=== PATIENT | male | born 1955 | race Caucasian/White ===

== ENCOUNTER → 2016-10-18 | Outpatient (CLI) | payer BC ==
[2016-10-18 09:34] LABS: ALKALINE PHOSPHATASE 75 U/L (45-117); ALT/SGPT 29 U/L (12-78); ANION GAP 8 MEQ/L (8-16); AST/SGOT 16 U/L (15-37); BILIRUBIN,TOTAL 0.5 MG/DL (0.2-1.0); BLOOD UREA NITROGEN 25 MG/DL (7-18); CALCIUM LEVEL 8.9 MG/DL (8.8-10.2); CARBON DIOXIDE LEVEL 28 MEQ/L (21-32); CHLORIDE LEVEL 109 MEQ/L (98-107); CHOLESTEROL LEVEL 245 MG/DL (<200); CREATININE FOR GFR 0.93 MG/DL (0.70-1.30); GLOMERULAR FILTRATION RATE > 60.0 (>49); GLUCOSE, FASTING 95 MG/DL (80-110); POTASSIUM SERUM 4.1 MEQ/L (3.5-5.1); SODIUM LEVEL 145 MEQ/L (136-145); TOTAL PROTEIN 6.5 GM/DL (6.4-8.2); TRIGLYCERIDES LEVEL 352 MG/DL (<150)
== END ==
LOC: M WUC 08:11
PROVIDERS: ATTEND Emergency Medicine
DX: E78.2 Mixed hyperlipidemia (principal); I10 Essential (primary) hypertension

== ENCOUNTER 2023-12-27 14:31 | Inpatient (IN) | payer BC ==
[~2023-12-27] VITALS: Ht 172.7 cm; Wt 121.7 kg
[2023-12-27] MEDS ORDERED: OMEP40CA5 PO (14:45)
[2023-12-27] MEDS ORDERED: NAPR-849 PO (14:45)
[2023-12-27] MEDS ORDERED: CETI10CH PO (14:45)
[2023-12-27 15:31] LABS: BASO # 0.1 10^3/uL (0.0-0.2); BASO % 0.7 % (0.0-1.0); EOS # 0.1 10^3/uL (0.0-0.5); EOS % 1.6 % (0.0-3.0); HEMATOCRIT 36.9 % (42.0-52.0); HEMOGLOBIN 11.9 g/dl (13.5-17.5); LYMPH # 0.7 10^3/uL (1.5-5.0); LYMPH % 8.1 % (24.0-44.0); MEAN CORPUSCULAR HEMOGLOBIN 29.1 pg (27.0-33.0); MEAN CORPUSCULAR HGB CONC 32.2 g/dl (32.0-36.5); MEAN CORPUSCULAR VOLUME 90.2 fl (80.0-96.0); MONO % 10.9 % (2.0-8.0); NEUTROPHILS % 78.3 % (36.0-66.0); PLATELET COUNT, AUTOMATED 220 10^3/uL (150-450); RED BLOOD COUNT 4.09 10^6/uL (4.30-6.10)
[2023-12-27 15:56] LABS: CK-MB VALUE MASS 1.8 NG/ML (<3.6)
[2023-12-27 15:58] LABS: ALBUMIN 3.5 G/DL (3.2-5.2); ALKALINE PHOSPHATASE 82 U/L (46-116); ALT/SGPT 19 U/L (7.0-40); AST/SGOT 18 U/L (<34); BILIRUBIN,DIRECT 0.3 MG/DL (<0.4); BILIRUBIN,TOTAL 0.7 MG/DL (0.3-1.2); BLOOD UREA NITROGEN 20 MG/DL (9-23); CALCIUM LEVEL 9.2 MG/DL (8.3-10.6); CARBON DIOXIDE LEVEL 28 MMOL/L (20-31); CHLORIDE LEVEL 110 MMOL/L (98-107); CPK CREATINE PHOSPHOKINASE 45 U/L (46-171); CREATININE FOR GFR 1.03 MG/DL (0.70-1.30); GLOMERULAR FILTRATION RATE > 60.0 (>49); GLUCOSE, FASTING 96 MG/DL (74-106); POTASSIUM SERUM 3.8 MMOL/L (3.5-5.1); SODIUM LEVEL 140 MMOL/L (136-145); TOTAL PROTEIN 5.6 G/DL (5.7-8.2)
[2023-12-27 15:59] LABS: THYROID STIMULATING HORMONE 0.978 uIU/ML (0.55-4.78)
[2023-12-27 16:00] LABS: FREE T4 1.36 NG/DL (0.89-1.76)
[2023-12-27] MEDS: FUROSEMIDE 100MG/10ML VIAL IV ONE (17:06)
[2023-12-27 17:43] LABS: CK-MB VALUE MASS 1.9 NG/ML (<3.6)
[2023-12-27 17:44] LABS: MB/CK RELATIVE INDEX 4.41 (< OR =4)
[2023-12-27 18:43] LABS: RSV AMPLIFICATION NEGATIVE (NEGATIVE)
[2023-12-27] MEDS ORDERED: CETI10TA4 PO (19:21)
[2023-12-27] MEDS ORDERED: OMEP-173 PO (19:21)
[2023-12-27] MEDS ORDERED: NAPR220C23 PO (19:21)
[2023-12-27] MEDS ORDERED: HOME MED LIST COMPLETE! XX SCH (19:25)
[2023-12-27] MEDS: hydrALAZINE 20MG/ML 1ML VIAL IV STA (19:29)
[2023-12-27] MEDS ORDERED: MOM 30ML SUSPENSION UDC PO PRN (23:10)
[2023-12-27] MEDS ORDERED: ACETAMINOPHEN TAB 650MG DOSE (2X325MG) PO PRN (23:10)
[2023-12-28] VITALS (8 sets, daily range): BP systolic 140–189; BP diastolic 70–102; TEMP 97.3–98.8; O2SAT 91–96
[2023-12-28] MEDS: CETIRIZINE (ZyrTEC) 10 MG TAB PO SCH (00:17)
[2023-12-28 04:11] LABS: APPEARANCE, URINE CLEAR (CLEAR); BACTERIA, URINE AUTO NEGATIVE (NEGATIVE); BILIRUBIN, URINE AUTO NEGATIVE (NEGATIVE); BLOOD, URINE BLOOD NEGATIVE (NEGATIVE); COLOR, URINE YELLOW (YELLOW); GLUCOSE, URINE (UA) AUTO NEGATIVE (NEGATIVE); KETONE, URINE AUTO NEGATIVE (NEGATIVE); LEUKOCYTE ESTERASE, URINE AUTO NEGATIVE (NEGATIVE); MUCUS, URINE SMALL (NEGATIVE); NITRITE, URINE AUTO NEGATIVE (NEGATIVE); PROTEIN, URINE AUTO 2+ mg/dL (NEGATIVE); RBC, URINE AUTO 2 /HPF (0-3); SPECIFIC GRAVITY URINE AUTO 1.014 (1.002-1.035); SQUAMOUS EPITHELIAL CELL UR AU 0 /HPF (0-6); WBC, URINE AUTO 1 /HPF (0-3)
[2023-12-28] MEDS: LABETALOL 100MG/20ML VIAL IV STA (04:20)
[2023-12-28 05:39] LABS: HEMOGLOBIN 11.5 g/dl (13.5-17.5); MEAN CORPUSCULAR HEMOGLOBIN 28.7 pg (27.0-33.0); MEAN CORPUSCULAR HGB CONC 31.9 g/dl (32.0-36.5); MEAN CORPUSCULAR VOLUME 89.8 fl (80.0-96.0); PLATELET COUNT, AUTOMATED 208 10^3/uL (150-450); RED BLOOD COUNT 4.01 10^6/uL (4.30-6.10); WHITE BLOOD COUNT 6.6 10^3/uL (4.0-10.0)
[2023-12-28 06:02] LABS: ALBUMIN 3.2 G/DL (3.2-5.2); ALKALINE PHOSPHATASE 76 U/L (46-116); ALT/SGPT 20 U/L (7.0-40); AST/SGOT 17 U/L (<34); BILIRUBIN,TOTAL 0.9 MG/DL (0.3-1.2); BLOOD UREA NITROGEN 18 MG/DL (9-23); CALCIUM LEVEL 9.2 MG/DL (8.3-10.6); CARBON DIOXIDE LEVEL 30 MMOL/L (20-31); CHLORIDE LEVEL 106 MMOL/L (98-107); CREATININE FOR GFR 1.04 MG/DL (0.70-1.30); GLOMERULAR FILTRATION RATE > 60.0 (>49); GLUCOSE, FASTING 114 MG/DL (74-106); POTASSIUM SERUM 3.3 MMOL/L (3.5-5.1); SODIUM LEVEL 142 MMOL/L (136-145); TOTAL PROTEIN 5.3 G/DL (5.7-8.2)
[2023-12-28] MEDS: FUROSEMIDE 40MG/4ML VIAL IV SCH ×2 (08:40→12:39)
[2023-12-28] MEDS: POTASSIUM CHLORIDE 10MEQ SR TABLET PO ONE (08:41)
[2023-12-28] MEDS: OMEPRAZOLE 20MG CAP PO SCH (08:41)
[2023-12-28] MEDS: amLODIPine 5 MG TAB PO SCH (08:41)
[2023-12-28 08:47] LABS: MAGNESIUM LEVEL 1.4 MG/DL (1.8-2.4)
[2023-12-28] MEDS: MAG SULF 1GM/100ML (MAG RUN) 1 GM in IV 1 EA IV SCH (10:13)
[2023-12-28] MEDS: metOLazone 5 MG TAB PO ONE (11:39)
[2023-12-28] MEDS: METOPROLOL TART 12.5 MG PER 1/2 TAB PO SCH (12:00)
[2023-12-28 19:46] LABS: ALBUMIN 3.8 G/DL (3.2-5.2); BLOOD UREA NITROGEN 17 MG/DL (9-23); CALCIUM LEVEL 9.9 MG/DL (8.3-10.6); CARBON DIOXIDE LEVEL 33 MMOL/L (20-31); CHLORIDE LEVEL 102 MMOL/L (98-107); CREATININE FOR GFR 1.24 MG/DL (0.70-1.30); GLOMERULAR FILTRATION RATE > 60.0 (>49); GLUCOSE, FASTING 104 MG/DL (74-106); MAGNESIUM LEVEL 1.8 MG/DL (1.8-2.4); POTASSIUM SERUM 3.5 MMOL/L (3.5-5.1); SODIUM LEVEL 140 MMOL/L (136-145)
[2023-12-28] MEDS: POTASSIUM CHLORIDE 10MEQ SR TABLET PO SCH (21:00)
[2023-12-28] MEDS ORDERED: LACRILUBE (AKWA TEARS) OPHTH OINT 3.5GM OU PRN (22:30)
[2023-12-29 00:43] LABS: ALBUMIN 3.8 G/DL (3.2-5.2); BLOOD UREA NITROGEN 15 MG/DL (9-23); CARBON DIOXIDE LEVEL 34 MMOL/L (20-31); CHLORIDE LEVEL 101 MMOL/L (98-107); CREATININE FOR GFR 1.22 MG/DL (0.70-1.30); GLOMERULAR FILTRATION RATE > 60.0 (>49); GLUCOSE, FASTING 114 MG/DL (74-106); POTASSIUM SERUM 3.2 MMOL/L (3.5-5.1); SODIUM LEVEL 140 MMOL/L (136-145)
[2023-12-29] MEDS: POTASSIUM CHL PWD 20MEQ PACKET PO ONE (02:44)
[2023-12-29 03:25] VITALS: BP 148/81; TEMP 98.5; O2SAT 94
[2023-12-29 06:00] VITALS: BP 144/76
[2023-12-29 06:00] LABS: ALBUMIN 3.3 G/DL (3.2-5.2); CALCIUM LEVEL 9.7 MG/DL (8.3-10.6); CREATININE FOR GFR 1.3 MG/DL (0.70-1.30); GLOMERULAR FILTRATION RATE 58.4 (>49); MAGNESIUM LEVEL 1.6 MG/DL (1.8-2.4); POTASSIUM SERUM 3.5 MMOL/L (3.5-5.1)
[2023-12-29] MEDS ORDERED: FUROSEMIDE 40MG/4ML VIAL IV ONE (06:40)
[2023-12-29] MEDS: MAG SULF 1GM/100ML (MAG RUN) 1 GM in IV 1 EA IV SCH (06:52)
[2023-12-29] MEDS ORDERED: metOLazone 5 MG TAB PO ONE (07:00)
[2023-12-29 07:24] VITALS: BP 132/70; TEMP 97.6; O2SAT 91
[2023-12-29] MEDS: metOLazone 5 MG TAB PO ONE (07:45)
[2023-12-29] MEDS: POTASSIUM CHLORIDE 10MEQ SR TABLET PO ONE ×2 (07:46→18:04)
[2023-12-29] MEDS: MAGNESIUM OXIDE 400MG TAB (MAG-OX) PO SCH (08:02)
[2023-12-29 13:31] LABS: ALBUMIN 3.8 G/DL (3.2-5.2); CALCIUM LEVEL 9.9 MG/DL (8.3-10.6); CREATININE FOR GFR 1.3 MG/DL (0.70-1.30); GLOMERULAR FILTRATION RATE 58.4 (>49); MAGNESIUM LEVEL 1.9 MG/DL (1.8-2.4); POTASSIUM SERUM 3.4 MMOL/L (3.5-5.1)
[2023-12-29 16:54] VITALS: BP 168/76; TEMP 97.8; O2SAT 96
[2023-12-29 17:55] VITALS: BP 149/88
[2023-12-29] MEDS: MAG SULF 1GM/100ML (MAG RUN) 1 GM in IV 1 EA IV ONE (18:04)
[2023-12-29 20:00] VITALS: BP 128/68; TEMP 97.9; O2SAT 93
[2023-12-30 03:36] VITALS: BP 136/71; TEMP 97.9; O2SAT 94
[2023-12-30 06:15] LABS: BLOOD UREA NITROGEN 18 MG/DL (9-23); CALCIUM LEVEL 9.5 MG/DL (8.3-10.6); CARBON DIOXIDE LEVEL 31 MMOL/L (20-31); CHLORIDE LEVEL 102 MMOL/L (98-107); CREATININE FOR GFR 1.22 MG/DL (0.70-1.30); GLOMERULAR FILTRATION RATE > 60.0 (>49); GLUCOSE, FASTING 109 MG/DL (74-106); MAGNESIUM LEVEL 1.8 MG/DL (1.8-2.4); POTASSIUM SERUM 4.2 MMOL/L (3.5-5.1); SODIUM LEVEL 139 MMOL/L (136-145)
[2023-12-30 08:10] VITALS: BP 126/82; TEMP 97.7; O2SAT 96
[2023-12-30] MEDS: FUROSEMIDE 40MG/4ML VIAL IV SCH (10:11)
[2023-12-30] MEDS: SPIRONOLACTONE 25 MG TAB PO SCH (12:13)
[2023-12-30] MEDS: MAG SULF 1GM/100ML (MAG RUN) 1 GM in IV 1 EA IV SCH (12:14)
[2023-12-30 12:15] LABS: INR 1.02; PARTIAL THROMBOPLASTIN TIME 28.5 SECONDS (24.8-34.2); PROTHROMBIN TIME 13.1 SECONDS (12.5-14.5)
[2023-12-30 15:49] VITALS: BP 110/55; TEMP 97.7; O2SAT 94
[2023-12-30] MEDS: RIVAROXABAN 10MG TAB (XARELTO) PO SCH (17:32)
[2023-12-30 20:14] VITALS: BP 123/57; TEMP 97.8; O2SAT 91
[2023-12-31 00:10] VITALS: BP 127/74; TEMP 97.8; O2SAT 91
[2023-12-31 04:16] VITALS: BP 155/83; TEMP 98.8; O2SAT 92
[2023-12-31 05:57] LABS: CALCIUM LEVEL 9.6 MG/DL (8.3-10.6); CREATININE FOR GFR 1.35 MG/DL (0.70-1.30); POTASSIUM SERUM 3.4 MMOL/L (3.5-5.1)
[2023-12-31 07:50] VITALS: BP 145/75; TEMP 98.4; O2SAT 95
[2023-12-31] MEDS: POTASSIUM CHLORIDE 10MEQ SR TABLET PO SCH (09:20)
[2023-12-31 11:19] VITALS: BP 134/64; TEMP 98.3; O2SAT 93
[2023-12-31 12:20] LABS: CALCIUM LEVEL 9.8 MG/DL (8.3-10.6); CREATININE FOR GFR 1.31 MG/DL (0.70-1.30); GLOMERULAR FILTRATION RATE 57.9 (>49); POTASSIUM SERUM 3.4 MMOL/L (3.5-5.1)
[2023-12-31] MEDS ORDERED: MAGN400T2 PO (12:58)
[2023-12-31] MEDS ORDERED: POTA-136 PO (12:58)
[2023-12-31] MEDS ORDERED: FURO40TA2 PO (12:58)
[2023-12-31] MEDS ORDERED: METO1TAB87 PO (12:58)
[2023-12-31] MEDS ORDERED: ELIQ5TAB PO (12:58)
== END 2023-12-31 14:57 | disposition home or self-care (01) | DRG 194 ==
LOC: M ED 14:31 → M ED INP 23:08 → ENRESERV 12-28 00:38 → M PCU 12-28 00:59
PROVIDERS: ADMIT Internal Medicine; ATTEND Internal Medicine
PROC: B246ZZZ Ultrasonography of Right and Left Heart (ICD-10-PCS; principal; 2023-12-29)
DX: I13.0 Hypertensive heart and chronic kidney disease with heart failure and stage 1 through stage 4 chronic kidney disease, or unspecified chronic kidney disease (principal); E87.3 Alkalosis; Z68.41 Body mass index [BMI] 40.0-44.9, adult; E83.42 Hypomagnesemia; I48.0 Paroxysmal atrial fibrillation; E66.01 Morbid (severe) obesity due to excess calories; N18.30 Chronic kidney disease, stage 3 unspecified; K21.9 Gastro-esophageal reflux disease without esophagitis; M19.90 Unspecified osteoarthritis, unspecified site; J98.11 Atelectasis; I16.0 Hypertensive urgency; D64.9 Anemia, unspecified; E87.6 Hypokalemia; I87.2 Venous insufficiency (chronic) (peripheral); N43.3 Hydrocele, unspecified; Z79.899 Other long term (current) drug therapy; Z88.5 Allergy status to narcotic agent; Z88.7 Allergy status to serum and vaccine; Z11.52 Encounter for screening for COVID-19; Z87.891 Personal history of nicotine dependence; I50.33 Acute on chronic diastolic (congestive) heart failure

== ENCOUNTER → 2024-01-09 | Outpatient (REF) | payer BC ==
[~2024-01-09] MED LIST: CETI10CH PO; CETI10TA4 PO; ELIQ5TAB PO; FURO40TA2 PO; MAGN400T2 PO; METO1TAB87 PO; NAPR-849 PO; NAPR220C23 PO; OMEP-173 PO; OMEP40CA5 PO; POTA-136 PO
[2024-01-09 18:59] LABS: CREATININE, URINE 140.5 MG/DL
[2024-01-09 19:08] LABS: BLOOD UREA NITROGEN 16 MG/DL (9-23); CALCIUM LEVEL 9.7 MG/DL (8.3-10.6); CARBON DIOXIDE LEVEL 29 MMOL/L (20-31); CHLORIDE LEVEL 105 MMOL/L (98-107); CHOLESTEROL LEVEL 202 MG/DL (<200); CHOLESTEROL RISK RATIO 5.62 (<5); CREATININE FOR GFR 1.08 MG/DL (0.70-1.30); GLOMERULAR FILTRATION RATE > 60.0 (>49); GLUCOSE, FASTING 87 MG/DL (74-106); HDL CHOLESTEROL 35.9 MG/DL (>40); LDL CHOLESTEROL 128.1 MG/DL (<100); MAGNESIUM LEVEL 1.6 MG/DL (1.8-2.4); NON-HDL-C 166.1 MG/DL; SODIUM LEVEL 138 MMOL/L (136-145); TRIGLYCERIDES LEVEL 190 MG/DL (<150)
[2024-01-09 19:10] LABS: FREE T4 1.31 NG/DL (0.89-1.76)
[2024-01-09 19:11] LABS: THYROID STIMULATING HORMONE 1.227 uIU/ML (0.55-4.78)
[2024-01-09 19:13] LABS: MAU/CREAT RATIO 502.4 MCG/MG (0.0-30.0)
[2024-01-09 20:03] LABS: HEPATITIS C VIRUS ABY INDEX < 0.02 INDEX (<0.8); HIV 1&2 SCREEN NEGATIVE (NEGATIVE)
[2024-01-09 20:20] LABS: HEMOGLOBIN A1c 5.2 % (4.0-6.0)
== END ==
LOC: M LAB REF 16:33
PROVIDERS: ATTEND Nurse Practitioner Family
DX: N18.9 Chronic kidney disease, unspecified (principal); Z11.9 Encounter for screening for infectious and parasitic diseases, unspecified; I48.91 Unspecified atrial fibrillation; E66.9 Obesity, unspecified

== ENCOUNTER → 2024-02-27 | Outpatient (REF) | payer BC ==
[2024-02-27 14:38] LABS: ALBUMIN 3.6 G/DL (3.2-5.2); ALKALINE PHOSPHATASE 86 U/L (46-116); ALT/SGPT 25 U/L (7.0-40); AST/SGOT 17 U/L (<34); BILIRUBIN,DIRECT 0.2 MG/DL (<0.4); BILIRUBIN,TOTAL 0.6 MG/DL (0.3-1.2); BLOOD UREA NITROGEN 19 MG/DL (9-23); CALCIUM LEVEL 9.7 MG/DL (8.3-10.6); CARBON DIOXIDE LEVEL 30 MMOL/L (20-31); CHLORIDE LEVEL 105 MMOL/L (98-107); CREATININE FOR GFR 1.24 MG/DL (0.70-1.30); GLOMERULAR FILTRATION RATE > 60.0 (>49); GLUCOSE, FASTING 92 MG/DL (74-106); MAGNESIUM LEVEL 1.3 MG/DL (1.8-2.4); POTASSIUM SERUM 4.4 MMOL/L (3.5-5.1); SODIUM LEVEL 140 MMOL/L (136-145); TOTAL PROTEIN 6.1 G/DL (5.7-8.2)
[2024-02-27 15:02] LABS: CREATININE, URINE 191.7 MG/DL
== END ==
LOC: M LAB REF 12:33
PROVIDERS: ATTEND Nurse Practitioner Family
DX: N18.9 Chronic kidney disease, unspecified (principal); E78.2 Mixed hyperlipidemia; I50.9 Heart failure, unspecified; E83.42 Hypomagnesemia

== ENCOUNTER → 2024-07-16 | Outpatient (REF) | payer BC ==
[2024-07-16 17:04] LABS: FERRITIN 31.4 NG/ML (10.5-307.3)
== END ==
LOC: M LAB REF 16:30
PROVIDERS: ATTEND Internal Medicine
DX: D64.9 Anemia, unspecified (principal)

== ENCOUNTER → 2024-08-04 | Outpatient (CLI) | payer BC ==
[2024-08-04 17:37] LABS: ALBUMIN 3.8 G/DL (3.2-5.2); BLOOD UREA NITROGEN 17 MG/DL (9-23); CALCIUM LEVEL 10.1 MG/DL (8.3-10.6); CARBON DIOXIDE LEVEL 29 MMOL/L (20-31); CHLORIDE LEVEL 109 MMOL/L (98-107); CREATININE FOR GFR 1.13 MG/DL (0.70-1.30); GLOMERULAR FILTRATION RATE > 60.0 (>49); GLUCOSE, FASTING 99 MG/DL (74-106); MAGNESIUM LEVEL 1.6 MG/DL (1.8-2.4); PHOSPHORUS LEVEL 2.8 MG/DL (2.4-5.1); POTASSIUM SERUM 4.3 MMOL/L (3.5-5.1); SODIUM LEVEL 141 MMOL/L (136-145)
== END ==
LOC: M WUC 11:49
PROVIDERS: ATTEND Internal Medicine Cardiovascular Disease
DX: I50.32 Chronic diastolic (congestive) heart failure (principal)

== ENCOUNTER → 2024-08-11 | Outpatient (REF) | payer BC | LOC: M LAB REF 13:29 | PROVIDERS: ATTEND Internal Medicine | DX: I50.32 Chronic diastolic (congestive) heart failure (principal) ==

== ENCOUNTER → 2024-11-12 | Outpatient (CLI) | payer BC, MEDICARE ==
[2024-11-12 17:57] LABS: ALBUMIN 3.6 G/DL (3.2-5.2); BILIRUBIN,TOTAL 0.9 MG/DL (0.3-1.2); CALCIUM LEVEL 9.6 MG/DL (8.3-10.6); CREATININE FOR GFR 1.43 MG/DL (0.70-1.30); GLOMERULAR FILTRATION RATE 52.2 (>49); MAGNESIUM LEVEL 1.7 MG/DL (1.8-2.4); POTASSIUM SERUM 4.2 MMOL/L (3.5-5.1); TOTAL PROTEIN 6.3 G/DL (5.7-8.2)
== END ==
LOC: M WUC 09:56
PROVIDERS: ATTEND Registered Nurse
DX: I11.0 Hypertensive heart disease with heart failure (principal)

== ENCOUNTER → 2025-01-13 | Outpatient (REF) | payer BC | LOC: M LAB REF 11:58 | PROVIDERS: ATTEND Internal Medicine | DX: I50.32 Chronic diastolic (congestive) heart failure (principal) ==